=== PATIENT | female | born 1995 | race African-American/Black ===

== ENCOUNTER 2021-12-02 20:34 | Emergency (ER) | payer SELFPAY ==
[2021-12-02] MEDS ORDERED: Bicillin LA 1.2 MILLION UNITS/2 ML SYRINGE ONE (22:06)
== END 2021-12-02 22:10 | disposition home or self-care (01) ==
LOC: CSHERS 20:34
DX: J02.9 Acute pharyngitis, unspecified (principal)
CPT/HCPCS: 87081; 87430; 96372; 99283; J0561

== ENCOUNTER 2022-01-13 11:53 | Emergency (ER) | payer SELFPAY ==
[2022-01-13 12:25] LABS: Bilirubin Neg (Negative); Blood, Urine 250 (Negative); Clarity Slightly Cloudy (Clear); Glucose, Urine (Dipstick) Normal (Negative); Ketone, Urine Negative (Negative); Leukocyte 500 (Negative); Nitrite Negative (Negative); Protein, Urine (Dipstick) Negative (Neg-Trace); Urobilinogen Normal mg/dL (Less than 2)
[2022-01-13 12:40] LABS: #Eosinphils 0.1 10x3/uL (0.0-0.5); #Monocytes 0.4 10x3/uL (0.0-1.1); #Neutrophils 2.6 10x3/uL (1.5-8.4); %Basophils 0.4 % (0.0-2.0); %Lymphocytes 38.6 % (18.0-47.0); %Monocytes 7.7 % (0.0-10.0); %Neutrophils 52.1 % (40.0-75.0); Hemoglobin 11.6 g/dL (12.0-15.5); Mean Corpuscular HGB CONC 31.9 g/dL (32.0-36.0); Mean Corpuscular Hemoglobin 25.6 pg (27.0-33.0); Mean Corpuscular Volume 80.4 fl (81.6-98.3); Mean Platelet Volume 10.5 fl (7.4-10.4); Platelet Count 261 10x3/uL (150-450); Red Blood Cell (RBC) Count 4.53 10x6/uL (3.90-5.03); White Blood Cell (WBC) Count 4.9 10x3/uL (3.5-10.5)
[2022-01-13 13:06] LABS: Bacteria/HPF Rare-Few HPF (None Seen); Squamous Epithelial 0-3 HPF (0-3); Trichomonas/HPF 1+ HPF (None Seen)
[2022-01-13 13:10] LABS: ALT (SGPT) 10 U/L (8-55); AST (SGOT) 16 U/L (5-34); Albumin 4.3 g/dL (3.5-5.0); Alkaline Phosphatase 45 U/L (40-110); Anion Gap 12 mmol/L (10-20); BUN (Urea Nitrogen) 9 mg/dL (7.0-18.7); Bilirubin, Total 0.3 mg/dL (0.2-1.2); Calc. Creatinine Clearance 0 mL/min (70-130); Calcium 9.7 mg/dL (7.8-10.44); Carbon Dioxide 25 mmol/L (22-29); Chloride 103 mmol/L (98-107); Estimated GFR 117; Globulin 3.1 g/dL (2.4-3.5); Glucose 103 mg/dL (70-105); Potassium 3.6 mmol/L (3.5-5.1); Protein, Total 7.4 g/dL (6.0-8.3); Sodium 136 mmol/L (136-145)
== END 2022-01-13 14:49 | disposition home or self-care (01) ==
LOC: CSHERS 11:53
DX: O20.0 Threatened abortion (principal); Z3A.01 Less than 8 weeks gestation of pregnancy
CPT/HCPCS: 36415; 80053; 81003; 81015; 84702; 85025

== ENCOUNTER 2022-01-24 11:19 | Emergency (ER) | payer SELFPAY ==
[2022-01-24 13:10] LABS: #Eosinphils 0.1 10x3/uL (0.0-0.5); #Monocytes 0.5 10x3/uL (0.0-1.1); #Neutrophils 3.8 10x3/uL (1.5-8.4); %Basophils 0.3 % (0.0-2.0); %Eosinophils 1.2 % (0.0-6.0); %Monocytes 8.2 % (0.0-10.0); %Neutrophils 65.8 % (40.0-75.0); Hemoglobin 11.4 g/dL (12.0-15.5); Mean Corpuscular HGB CONC 31.1 g/dL (32.0-36.0); Mean Corpuscular Hemoglobin 25.6 pg (27.0-33.0); Mean Corpuscular Volume 82.1 fl (81.6-98.3); Mean Platelet Volume 10.6 fl (7.4-10.4); Platelet Count 266 10x3/uL (150-450); RBC Distribution Width 13.8 % (11.5-14.5); Red Blood Cell (RBC) Count 4.46 10x6/uL (3.90-5.03); White Blood Cell (WBC) Count 5.8 10x3/uL (3.5-10.5)
[2022-01-24 13:14] LABS: ALT (SGPT) 11 U/L (8-55); AST (SGOT) 17 U/L (5-34); Albumin 4.4 g/dL (3.5-5.0); Alkaline Phosphatase 55 U/L (40-110); Anion Gap 12 mmol/L (10-20); BUN (Urea Nitrogen) 11 mg/dL (7.0-18.7); Bilirubin, Total 0.3 mg/dL (0.2-1.2); Calc. Creatinine Clearance 0 mL/min (70-130); Calcium 9.3 mg/dL (7.8-10.44); Carbon Dioxide 28 mmol/L (22-29); Chloride 106 mmol/L (98-107); Estimated GFR 113; Globulin 2.9 g/dL (2.4-3.5); Glucose 82 mg/dL (70-105); Lipase 15 U/L (8-78); Potassium 3.6 mmol/L (3.5-5.1); Protein, Total 7.3 g/dL (6.0-8.3); Sodium 142 mmol/L (136-145)
[2022-01-24 15:47] LABS: Bilirubin Neg (Negative); Blood, Urine 250 (Negative); Glucose, Urine (Dipstick) Normal (Negative); Ketone, Urine 5 mg/dL (Negative); Leukocyte 100 (Negative); Nitrite Negative (Negative); Protein, Urine (Dipstick) 30 mg/dl (Neg-Trace); Specific Gravity, Urine 1.015 (1.005-1.030)
[2022-01-24 15:57] LABS: Pregnancy Test - Urine (BHCG) POSITIVE (Negative); Pregu Control Background? CLEAR/WHITE (CLR/WHITE); Pregu Control Bar Appear? YES (CONTROL BAR); Specific Gravity 1.015 (1.002-1.036)
[2022-01-24] MEDS ORDERED: Ketorolac Tromethamine 30 MG/ML VIAL ONE (16:04)
[2022-01-24] MEDS ORDERED: Ondansetron ODT 4 MG TAB ONE (16:04)
[2022-01-24 16:11] LABS: RBC/HPF Greater than 50 HPF (0-3)
[2022-01-24 16:13] LABS: Bacteria/HPF 2+ HPF (None Seen)
[2022-01-24 16:14] LABS: Mucous/LPF 3+ LPF (<2+); Trichomonas/HPF Rare HPF (None Seen)
== END 2022-01-24 16:25 | disposition home or self-care (01) ==
LOC: CSHERS 11:19
DX: O20.9 Hemorrhage in early pregnancy, unspecified (principal); Z3A.00 Weeks of gestation of pregnancy not specified
CPT/HCPCS: 76856; 80053; 81003; 81015; 81025; 83690; 85025; 96372; J1885; Q0162

== ENCOUNTER 2022-10-17 20:51 | Day surgery (SDC) | payer OTHER, SELFPAY ==
[2022-10-17 21:18] VITALS: BMI 36.1
[2022-10-17] MEDS ORDERED: hydrALAZINE 20 MG/ML VIAL SLOW IVP PRN (21:55)
[2022-10-17] MEDS ORDERED: Lactated Ringer's 1,000 ML IV SCH (22:15)
[2022-10-17 22:24] LABS: Bilirubin Neg (Negative); Blood, Urine Negative (Negative); Clarity Clear (Clear); Glucose, Urine (Dipstick) Normal (Negative); Ketone, Urine Negative (Negative); Leukocyte 25 (Negative); Nitrite Negative (Negative); Protein, Urine (Dipstick) 15 mg/dl (Neg-Trace); Specific Gravity, Urine 1.015 (1.005-1.030)
[2022-10-17 22:45] LABS: Bacteria/HPF Rare-Few HPF (None Seen); CAUTI Indications for Culture Pelvic or flank pain; RBC/HPF 0-3 HPF (0-3); Squamous Epithelial 0-3 HPF (0-3); WBC/HPF 0-3 HPF (0-3)
[2022-10-17 22:47] LABS: FFN Internal QC Analyzer PASS (PASS); FFN Internal QC Cassette PASS (PASS); Fetal Fibronectin Negative (Negative)
[2022-10-17 22:47] LABS: Urine Culture Reflex No No
[2022-10-17] MEDS ORDERED: Acetaminophen 500 MG TAB PO SCH (23:45)
[2022-10-19 22:42] LABS: Chlamydia by PCR, Vaginal Swab Not Detected (NotDetected); GC by PCR, Vaginal Swab Not Detected (NotDetected)
== END 2022-10-18 02:07 | disposition home or self-care (01) ==
LOC: CSHLD/OP 20:51
PROVIDERS: ATTEND Family Medicine
DX: O47.02 False labor before 37 completed weeks of gestation, second trimester (principal); O30.042 Twin pregnancy, dichorionic/diamniotic, second trimester; Z79.899 Other long term (current) drug therapy; Z88.5 Allergy status to narcotic agent; Z3A.25 25 weeks gestation of pregnancy
CPT/HCPCS: 76817; 81001; 82731; 87480; 87491; 87510; 87591; 87660; 99285

== ENCOUNTER 2022-12-24 02:09 | Observation (INO) | payer OTHER ==
[2022-12-24] MEDS ORDERED: hydrALAZINE 20 MG/ML VIAL SLOW IVP PRN (06:46)
[2022-12-24] MEDS ORDERED: Betamet Acet/Betamet Na Ph 30 MG/5 ML VIAL ONE (06:56)
[2022-12-24] MEDS ORDERED: Betamet Acet/Betamet Na Ph 30 MG/5 ML VIAL IM SCH (07:00)
[2022-12-25] MEDS: Lactated Ringer's 1,000 ML IV SCH ×2 (07:16→07:17)
== END 2022-12-25 10:30 | disposition home or self-care (01) ==
LOC: CSHLD/OP 02:09 → INTOOBSV 08:24 → CSHLD 08:24
PROVIDERS: ADMIT Family Medicine; ATTEND Family Medicine
DX: O47.03 False labor before 37 completed weeks of gestation, third trimester (principal); O30.043 Twin pregnancy, dichorionic/diamniotic, third trimester; O32.1XX0 Maternal care for breech presentation, not applicable or unspecified; Z88.5 Allergy status to narcotic agent; Z79.899 Other long term (current) drug therapy; Z3A.35 35 weeks gestation of pregnancy
CPT/HCPCS: 96360; 99285; J0702

== ENCOUNTER 2022-12-29 15:06 | Day surgery (SDC) | payer OTHER ==
[2022-12-29 15:41] VITALS: BMI 37.4
== END 2022-12-29 19:41 | disposition home or self-care (01) ==
LOC: CSHLD/OP 15:06
PROVIDERS: ATTEND Family Medicine
DX: Z36.9 Encounter for antenatal screening, unspecified (principal)
CPT/HCPCS: 59025; 76819; 99282

== ENCOUNTER 2023-01-07 05:34 | Inpatient (IN) | payer OTHER ==
[2023-01-06 11:49] LABS: Hematocrit 28.7 % (34.9-44.5); Hemoglobin 8.6 g/dL (12.0-15.5)
[2023-01-06 11:50] LABS: Platelet Count 204 10x3/uL (130-400)
[2023-01-06 12:03] LABS: HBSAg Index 0.14 S/CO (0-0.99); Hep B Surf Ag Non-Reactive S/CO (NonReactive); Syphilis Antibody Nonreactive (Nonreactive)
[2023-01-07] MEDS ORDERED: Methylergonovine 0.2 MG/ML VIAL IM PRN (05:44)
[2023-01-07] MEDS ORDERED: hydrALAZINE 20 MG/ML VIAL SLOW IVP PRN ×2 (05:44→13:21)
[2023-01-07] MEDS ORDERED: Misoprostol 200 MCG TAB PR PRN (05:44)
[2023-01-07] MEDS ORDERED: Diphenoxylate HCl/Atropine Tablet PO PRN (05:44)
[2023-01-07] MEDS ORDERED: CEFAZOLIN 2 GM in Sodium Chloride 0.9% 100 ML IVPB SCH (05:44)
[2023-01-07] MEDS ORDERED: Famotidine/PF 20 mg/2ml Vial SLOW IVP PRN (05:44)
[2023-01-07] MEDS ORDERED: Ondansetron PF 4 MG/2 ML Vial IVP PRN ×3 (05:44→13:21)
[2023-01-07] MEDS ORDERED: Lactated Ringer's 1,000 ML IV SCH (05:44)
[2023-01-07] MEDS ORDERED: Promethazine HCl 25 MG/ML VIAL IM PRN ×2 (05:44→08:58)
[2023-01-07] MEDS ORDERED: Bicitra 30 ML UDCUP PO PRN (05:44)
[2023-01-07] MEDS ORDERED: Carboprost 250 MCG/ML AMP IM PRN (05:44)
[2023-01-07] MEDS ORDERED: Oxytocin 30 units/NS 500 ML 500 ML IV SCH (05:44)
[2023-01-07] MEDS ORDERED: Tranexamic Acid 1,000 MG/10 ML VIAL IVP PRN (05:44)
[2023-01-07 06:18] VITALS: BMI 38.3
[2023-01-07] MEDS ORDERED: Oxytocin 10 UNITS/ML VIAL ONE (07:21)
[2023-01-07] MEDS ORDERED: ePHEDrine Sulfate 50 MG/10 ML VIAL ONE (07:32)
[2023-01-07] MEDS ORDERED: Phenylephrine 40 MG/NS 250 ML 250 ML ONE (07:32)
[2023-01-07] MEDS ORDERED: Morphine PF 10 MG/10 ML VIAL ONE (07:32)
[2023-01-07] MEDS ORDERED: Ketorolac Tromethamine 30 MG/ML VIAL ONE (07:32)
[2023-01-07] MEDS ORDERED: Ondansetron PF 4 MG/2 ML Vial ONE (07:56)
[2023-01-07] MEDS ORDERED: Promethazine HCl 25 MG/ML VIAL ONE ×2 (08:07)
[2023-01-07] MEDS ORDERED: Midazolam HCl 2 mg/2 ml Vial ONE (08:08)
[2023-01-07] MEDS ORDERED: fentaNYL 50 mcg/mL 1 mL Vial ONE (08:22)
[2023-01-07] MEDS ORDERED: Fentanyl 50 MCG/1 ML VIAL SLOW IVP PRN (08:58)
[2023-01-07] MEDS ORDERED: Promethazine HCl 25 MG SUPP PR PRN (08:58)
[2023-01-07] MEDS ORDERED: diphenhydrAMINE 50 MG/ML VIAL IVP PRN (08:58)
[2023-01-07] MEDS ORDERED: Meperidine HCl/PF 25 MG/ML VIAL SLOW IVP PRN (08:58)
[2023-01-07] MEDS ORDERED: Moisturizing Cream (Eucerin) 113 GM JAR TOP PRN (08:58)
[2023-01-07] MEDS ORDERED: Ondansetron HCl/PF 4 MG/2 ML Vial IVP PRN (08:58)
[2023-01-07] MEDS ORDERED: L&D-HYDROmorphone 0.5 MG/0.5 ML SYRINGE SLOW IVP PRN (08:58)
[2023-01-07] MEDS ORDERED: Ketorolac Tromethamine 30 MG/ML VIAL IVP PRN (08:58)
[2023-01-07] MEDS ORDERED: Naloxone HCl 0.4 mg/ml Vial IVP PRN ×2 (08:58)
[2023-01-07] MEDS ORDERED: Naloxone HCl 0.4 mg/ml Vial IV PRN (08:58)
[2023-01-07] MEDS ORDERED: Ketorolac Tromethamine 30 MG/ML VIAL IVP SCH (09:00)
[2023-01-07] MEDS ORDERED: Communication Order-Pharmacy FS SCH (09:00)
[2023-01-07] MEDS ORDERED: Lanolin Ointment 7 GM TUBE TOP PRN (13:21)
[2023-01-07] MEDS ORDERED: diphenhydrAMINE 25 MG CAP PO PRN (13:21)
[2023-01-07] MEDS ORDERED: Boostrix 0.5 ML (Tdap) VIAL (>/=7 yrs of age) IM ONE (13:21)
[2023-01-07] MEDS ORDERED: Prenatal Vitamin 1 TAB PO SCH (13:30)
[2023-01-07] MEDS ORDERED: Docusate 100 MG CAP PO SCH (13:30)
[2023-01-07] MEDS ORDERED: Ferrous Sulfate 325 MG TAB PO SCH (13:30)
[2023-01-07] MEDS: Ketorolac Tromethamine 30 MG/ML VIAL IVP SCH ×2 (15:46→22:05)
[2023-01-07] MEDS ORDERED: oxyCODONE/Acetaminophen 5 mg/325 mg Tablet PO PRN ×2 (21:00)
[2023-01-07] MEDS ORDERED: Acetaminophen 325 MG TAB PO PRN (21:47)
[2023-01-07] MEDS: Docusate 100 MG CAP PO SCH (22:04)
[2023-01-07] MEDS: Ferrous Sulfate 325 MG TAB PO SCH (22:05)
[2023-01-07] MEDS: Simethicone Chewable 80 MG TAB PO PRN (22:06)
[2023-01-07] MEDS: Acetaminophen 325 MG TAB PO PRN (22:15)
[2023-01-07] MEDS: oxyCODONE 5 MG TAB PO PRN (22:16)
[2023-01-08] MEDS: oxyCODONE 5 MG TAB PO PRN ×5 (04:21→21:51)
[2023-01-08] MEDS: Ketorolac Tromethamine 30 MG/ML VIAL IVP SCH (04:21)
[2023-01-08] MEDS: Acetaminophen 325 MG TAB PO PRN ×4 (04:22→21:53)
[2023-01-08 04:35] LABS: Hematocrit 26.8 % (34.9-44.5); Mean Corpuscular HGB CONC 29.9 g/dL (32.0-36.0); Mean Corpuscular Hemoglobin 20.8 pg (27.0-33.0); Mean Corpuscular Volume 69.6 fl (81.6-98.3); Mean Platelet Volume 10.5 fl (7.4-10.4); Platelet Count 196 10x3/uL (150-450); RBC Distribution Width 18.1 % (11.5-14.5); Red Blood Cell (RBC) Count 3.85 10x6/uL (3.90-5.03); White Blood Cell (WBC) Count 10.4 10x3/uL (3.5-10.5)
[2023-01-08] MEDS: Prenatal Vitamin 1 TAB PO SCH (08:00)
[2023-01-08] MEDS: Docusate 100 MG CAP PO SCH ×2 (08:00→21:50)
[2023-01-08] MEDS: Ferrous Sulfate 325 MG TAB PO SCH ×2 (08:01→21:51)
[2023-01-08] MEDS: Ibuprofen 800 MG TAB PO SCH ×2 (13:31→21:51)
[2023-01-09] MEDS: Ibuprofen 800 MG TAB PO SCH ×3 (05:30→21:12)
[2023-01-09] MEDS: oxyCODONE 5 MG TAB PO PRN ×2 (08:11→23:54)
[2023-01-09] MEDS: Prenatal Vitamin 1 TAB PO SCH (08:14)
[2023-01-09] MEDS: Acetaminophen 325 MG TAB PO PRN ×2 (08:15→23:54)
[2023-01-09] MEDS: Ferrous Sulfate 325 MG TAB PO SCH ×2 (08:16→21:12)
[2023-01-09] MEDS: Docusate 100 MG CAP PO SCH ×2 (08:16→21:13)
[2023-01-09] MEDS ORDERED: Bisacodyl 5 MG TAB PO SCH (13:45)
[2023-01-09] MEDS: Bisacodyl 5 MG TAB PO SCH ×2 (14:15→14:19)
[2023-01-09] MEDS: Simethicone Chewable 80 MG TAB PO PRN ×2 (16:10→21:12)
[2023-01-09] MEDS ORDERED: Bisacodyl 10 MG SUPP PR SCH (16:30)
[2023-01-10] MEDS: Simethicone Chewable 80 MG TAB PO PRN (05:40)
[2023-01-10] MEDS: Ibuprofen 800 MG TAB PO SCH (05:40)
[2023-01-10 08:47] VITALS: BP 119/58; TEMP 98.1
[2023-01-10] MEDS: Prenatal Vitamin 1 TAB PO SCH (08:56)
[2023-01-10] MEDS: Docusate 100 MG CAP PO SCH (08:56)
[2023-01-10] MEDS: Ferrous Sulfate 325 MG TAB PO SCH (08:56)
[2023-01-10] MEDS ORDERED: Bisacodyl 10 MG SUPP PR SCH (09:00)
[2023-01-10] MEDS: oxyCODONE 5 MG TAB PO PRN (10:01)
== END 2023-01-10 12:45 | disposition home or self-care (01) | DRG 788 ==
LOC: CSHLD 05:34 → CSHPP 15:00
PROVIDERS: ADMIT Family Medicine; ATTEND Family Medicine
PROC: 10D00Z1 Extraction of Products of Conception, Low, Open Approach (ICD-10-PCS; principal; 2023-01-07)
PROC: 30233N1 Transfusion of Nonautologous Red Blood Cells into Peripheral Vein, Percutaneous Approach (ICD-10-PCS; 2023-01-07)
DX: O30.043 Twin pregnancy, dichorionic/diamniotic, third trimester (principal); Z3A.37 37 weeks gestation of pregnancy; Z37.2 Twins, both liveborn; O36.5931 Maternal care for other known or suspected poor fetal growth, third trimester, fetus 1; Z79.899 Other long term (current) drug therapy; Z88.6 Allergy status to analgesic agent; O62.2 Other uterine inertia; O32.8XX1 Maternal care for other malpresentation of fetus, fetus 1; O99.02 Anemia complicating childbirth; D64.9 Anemia, unspecified
CPT/HCPCS: 36415; 36430; 51702; 85014; 85018; 85027; 85049; 86780; 86850; 86900; 86901; 87340; 88307; J1885; J2250; J2274; J2405; J2550; J2590; J3010; P9016